=== PATIENT | female | born 1990 | race Caucasian/White ===

== ENCOUNTER 2023-07-03 16:29 | Emergency (ER) | payer OTHER, SELFPAY ==
[2023-07-03 16:45] VITALS: BP 120/77; PULSE 95; RESP 16; TEMP 36.4; O2SAT 100
--- NOTE | 2023-07-03 16:53 | ED.EAR ---
HPI - Ear Problem General Chief complaint: Ear Stated complaint: ear infection Time Seen by Provider: 07/03/23 16:53 Source: patient Mode of arrival: ambulatory Limitations: no limitations History of Present Illness HPI Narrative: 32 yo F presents with c/o L ear pain for 2 days. States painful to canal. No hearing changes. Afebrile. All systems reviewed and negative except as noted above. Related Data Home Medications Medication Instructions Recorded Confirmed propranolol 10 mg tablet 10 mg PO TID 07/03/23 07/03/23 venlafaxine 150 mg 150 mg PO DAILY 07/03/23 07/03/23 capsule,extended release 24 hr venlafaxine 75 mg capsule,extended 75 mg PO DAILY 07/03/23 07/03/23 release 24 hr Allergies Allergy/AdvReac Type Severity Reaction Status Date / Time No Known Allergies Allergy Unverified 09/27/14 15:50 Review of Systems Review of Systems: CONSTITUTIONAL: Denies fever, chills, or sweats. EYES: Denies visual changes, redness, or discharge. ENT: Denies rhinorrhea, congestion, sore throat. reports L ear pain CARDIOVASCULAR: Denies chest pain, palpitations, or edema. RESPIRATORY: Denies cough or dyspnea. GASTROINTESTINAL: Denies abdominal pain, nausea, vomiting, or diarrhea. GENITOURINARY: Denies dysuria or hematuria. SKIN: Denies rash or itching. MUSCULOSKELETAL: Denies back pain, joint pain, or myalgia. NEUROLOGIC: Denies headache, numbness, or weakness. PSYCHIATRIC: Denies anxiety or depression. All other systems reviewed are negative, except as documented in HPI. PMFSH Comments At time of signature, agree with nursing past medical, surgical, social and family history. There is no relevant family history pertinent to the presenting complaint. Exam Narrative: GENERAL: This is a well-nourished, well-developed patient, in no apparent distress. HEAD: normocephalic, atraumatic. EYES: PERRL. Sclera clear/white. Vision is grossly intact. EARS: L external ear swollen and red extends into L ear canal. no drainage. R external ear normal, normal canal. TMs normal without perforation. Hearing grossly intact. NOSE: External nose normal NECK: Neck supple, non-tender without lymphadenopathy, masses or thyromegaly. CARDIOVASCULAR: Regular rate and rhythm without murmurs, gallops, or rubs. RESPIRATORY: Clear to auscultation. Breath sounds equal bilaterally. No wheezes, rales, or rhonchi. SKIN: warm, Dry, intact with no suspicious lesions or rash, good texture and turgor. NEURO: awake, alert, and oriented to person, place and time. There were no obvious focal neurologic abnormalities. EXTREMITIES: No joint tenderness, effusion, or edema noted. Course Course Level of Care: Express Care Visit Vital Signs Vital signs: Vital Signs Temperature 36.4 C 07/03/23 16:45 Pulse Rate 95 07/03/23 16:45 Respiratory Rate 16 07/03/23 16:45 Blood Pressure 120/77 07/03/23 16:45 Pulse Oximetry 100 07/03/23 16:45 Oxygen Delivery Room Air 07/03/23 16:45 Temperature 36.4 C 07/03/23 16:45 Pulse Rate 95 07/03/23 16:45 Respiratory Rate 16 07/03/23 16:45 Blood Pressure 120/77 07/03/23 16:45 Pulse Oximetry 100 07/03/23 16:45 Oxygen Delivery Room Air 07/03/23 16:45 reviewed Medical Decision Making MDM Narrative Medical decision making narrative: Patient is aware of diagnosis, understands and agrees to treatment plan. Anticipatory guidance given. Patient agrees to follow-up as directed and is aware of reasons to seek care at the emergency department. Portions of this record may have been created with voice recognition software Vital Signs Vital Signs: Vital Signs Temperature 36.4 C 07/03/23 16:45 Pulse Rate 95 07/03/23 16:45 Respiratory Rate 16 07/03/23 16:45 Blood Pressure 120/77 07/03/23 16:45 Pulse Oximetry 100 07/03/23 16:45 Oxygen Delivery Room Air 07/03/23 16:45 Temperature 36.4 C 07/03/23 16:45 Pulse Rate 95 07/03/23 16:45 Res
== END 2023-07-03 17:05 | disposition home or self-care (01) ==
PROVIDERS: Emergency Provider Nurse Practitioner Family; PCP Family Medicine
DX: H60.92 Unspecified otitis externa, left ear (principal); H60.12 Cellulitis of left external ear; F41.9 Anxiety disorder, unspecified; F32.A Depression, unspecified
CPT/HCPCS: 99203; G0463